=== PATIENT | female | born 2000 | race Two or more races ===

== ENCOUNTER 2024-01-14 21:04 | Emergency (ER) | payer MEDICAID ==
[~2024-01-14] VITALS: Ht 162.6 cm; Wt 60.1 kg
[2024-01-15 00:04] VITALS: BP 113/69; PULSE 72; RESP 16; TEMP 97.9; O2SAT 100
[2024-01-15] MEDS: KETOROLAC TROMETH 60MG/2ML VIAL IM ONE (00:33)
[2024-01-15] MEDS ORDERED: METH-1181 PO (02:23)
== END 2024-01-15 02:40 | disposition home or self-care (01) ==
LOC: ER 21:04
DX: S13.4XXA Sprain of ligaments of cervical spine, initial encounter (principal); S39.012A Strain of muscle, fascia and tendon of lower back, initial encounter; V43.52XA Car driver injured in collision with other type car in traffic accident, initial encounter; Y93.I9 Activity, other involving external motion; Y92.89 Other specified places as the place of occurrence of the external cause; Y99.8 Other external cause status
CPT/HCPCS: 72040; 72100; 96372; 99284; J1885